=== PATIENT | female | born 1985 | race American Indian/Alaskan Native ===

== ENCOUNTER 2021-06-18 11:10 | Emergency (ER) | payer OTHER ==
--- NOTE | 2021-06-18 11:46 | Emergency Department Report ---
ED N/V/D HPI - General Chief complaint: Nausea/Vomiting/Diarrhea Stated complaint: nausea and vomiting Time Seen by Provider: 06/18/21 11:39 Source: patient Mode of arrival: Ambulatory Limitations: No Limitations - History of Present Illness Initial comments: 36-year-old female presents to the ER today with complaints of nausea and vomiting being . Patient states that she started vomiting the beginning of this week, then 2 days ago she took a home test and it was positive. She states that she took multiple tests and they were all positive. She states that her last menstrual cycle was May 15, 2021. She reports mild intermittent abdominal cramping. She denies any diarrhea, UTI symptoms or any abnormal vaginal bleeding or discharge. She is G7, P1, AB 5. MD complaint: nausea, vomiting, other () -: days(s) (2) - Related Data Previous Rx's Medication Instructions Recorded Last Taken Type Ondansetron [Zofran Odt] 4 mg PO Q8HR #15 tab.rapdis 06/18/21 Unknown Rx Allergies Allergy/AdvReac Type Severity Reaction Status Date / Time No Known Allergies Allergy Verified 06/18/21 11:16 ED Review of Systems ROS: Stated complaint: nausea and vomiting Other details as noted in HPI Comment: All other systems reviewed and negative Constitutional: denies: chills, fever Eyes: denies: eye pain, eye discharge, vision change ENT: denies: ear pain, throat pain, dental pain, hearing loss, epistaxis, congestion Respiratory: denies: cough, shortness of breath, wheezing Gastrointestinal: abdominal pain, nausea, vomiting Genitourinary: denies: urgency, dysuria, frequency, hematuria, discharge, abnormal menses, dyspareunia Musculoskeletal: denies: back pain, joint swelling, arthralgia Skin: denies: rash, lesions, change in color, change in hair/nails, pruritus Neurological: denies: headache, weakness, numbness, paresthesias, confusion, abnormal gait, vertigo Psychiatric: denies: anxiety, depression, auditory hallucinations, visual hallucinations, homicidal thoughts, suicidal thoughts Hematological/Lymphatic: denies: easy bleeding, easy bruising ED Past Medical Hx - Past Medical History Previous Medical History?: No - Surgical History Past Surgical History?: No - Medications Home Medications: Home Medications Medication Instructions Recorded Confirmed Last Taken Type Ondansetron [Zofran Odt] 4 mg PO Q8HR #15 tab.rapdis 06/18/21 Unknown Rx ED Physical Exam - General Limitations: No Limitations General appearance: alert, in no apparent distress - Head Head exam: Present: atraumatic, normocephalic, normal inspection - Eye Eye exam: Present: normal appearance, PERRL, EOMI Pupils: Present: normal accommodation - ENT ENT exam: Present: normal exam, mucous membranes moist - Neck Neck exam: Present: normal inspection, full ROM. Absent: meningismus - Respiratory Respiratory exam: Present: normal lung sounds bilaterally. Absent: respiratory distress, wheezes, rales, rhonchi - Cardiovascular Cardiovascular Exam: Present: regular rate, normal rhythm, normal heart sounds - GI/Abdominal GI/Abdominal exam: Present: soft. Absent: distended, tenderness, guarding, rebound - Neurological Exam Neurological exam: Present: alert, oriented X3, CN II-XII intact, normal gait - Psychiatric Psychiatric exam: Present: normal affect, normal mood - Skin Skin exam: Present: intact ED Course Vital Signs 06/18/21 06/18/21 06/18/21 11:14 12:51 13:04 Temperature 98.3 F 97.9 F Pulse Rate 99 H 70 Respiratory 16 16 16 Rate Blood Pressure 135/75 116/66 [Left] O2 Sat by Pulse 99 100 99 Oximetry ED Medical Decision Making - Lab Data Result diagrams: 06/18/21 12:10 06/18/21 12:10 - Radiology Data Patient: THALIA CONWAY MR#: [id number] : 1985 Acct:[id number] Age/Sex: 36 / F ADM Date: 06/18/21 Loc: ED Attending Dr: Ordering Physician: JAELYN PINEDA Date of Service: 06/18/21 Procedure(s): US OB transvaginal Accession Number(s): [id number] cc: JAELYN PINEDA ULTRASOUND OBSTETRIC REASON FOR EXAM: abdominal cramps/HCg 9858 TECHNIQUE: Transabdominal and transvaginal ultrasound was performed to evaluate a first trimester . COMPARISON: None available. FINDINGS: Uterus measures 10 cm. Endometrial stripe measures 2.2 cm. There is a circumscribed cystic structure in the endometrium which may reflect a gestational sac. No yolk sac or pole is identified. This measures 7 mm, corresponding to a gestational age of 5 weeks and 3 days. 2 cm hypoechoic structure in the left ovary, likely reflects a corpus luteum cyst. 1.4 cm follicle in right ovary. No suspicious cystic or solid mass in either adnexa. No significant free fluid IMPRESSION: Intrauterine of uncertain viability. Possible intrauterine gestational sac without yolk sac or pole identified at this time. Findings may be due to early gestation. Recommend continued follow-up with beta hCG and/or pelvic sonography. Signer Name: Dominique Brumfield MD Signed: 06/18/2021 3:07 PM Workstation Name: [id number] Transcribed By: JS Dictated By: DOMINIQUE BRUMFIELD MD Electronically Authenticated By: DOMINIQUE BRUMFIELD MD Signed Date/Time: 06/18/211506 DD/ 01 TD/TT: - Medical Decision Making 36-year-old female presents to the ER today with complaints of nausea and vomiting being . Patient states that she started vomiting the beginning of this week, then 2 days ago she took a home test and it was positive. She states that she took multiple tests and they were all positive. She states that her last menstrual cycle was May 15, 2021. She reports mild intermittent abdominal cramping. She denies any diarrhea, UTI symptoms or any abnormal vaginal bleeding or discharge. She is G7, P1, AB 5. 1530: Patient reports feeling better after IV fluids and Zofran. She has not vomited during stay. She is not toxic or ill-appearing. She is neurologically intact with a normal gait. She is not in any significant distress. She has a soft nontender abdomen. She has no bleeding all labs reviewed and unremarkable. Quantitative hCG measured at 9858, and OB ultrasound showed - - Intrauterine of uncertain viability. Possible intrauterine gestational sac without yolk sac or pole identified at this time. Findings may be due to early gestation. Recommend continued follow-up with beta hCG and/or pelvic sonography. Discussed all results with patient. She currently does not have an [facility] and therefore she will be given referral information to [facility] so that she can follow-up for continued monitoring of her and to start care. Patient expressed understanding of all instructions and agree with plan. Patient was stable at time of discharge. Critical care attestation.: If time is entered above; I have spent that time in minutes in the direct care of this critically ill patient, excluding procedure time. ED Disposition Clinical Impression: Nausea and vomiting during Disposition: 01 HOME / SELF CARE / HOMELESS Is pt being admited?: No Does the pt Need Aspirin: No Condition: Stable Instructions: Nausea and Vomiting, Adult, [id number], First Trimester of Additional Instructions: Recommend that he take the Zofran as prescribed to help with any nausea and vomiting. Recommend that you sip on fluids frequently throughout the day. You can also do edgar which also can help with nausea. It is important that you follow-up with [facility] for continued monitoring of your , including repeat ultrasound and quant. If you do not have an [facility] 1 will be provided for you on your discharge instructions. Recommend that you call and set up an appointment for next week. Return to the ER if your symptoms worsens or changes in any way Prescriptions: Ondansetron [Zofran Odt] 4 mg PO Q8HR #15 tab.rapdis Referrals: [facility] [Provider Group] - 3-5 Days [facility] [Provider Group] - 3-5 Days Forms: Work/School Release Form(ED) Time of Disposition: 15:21
[2021-06-18] MEDS ORDERED: ONDANSETRON 4 MG/2 ML INJ IV ONE (11:47)
[2021-06-18] MEDS ORDERED: SODIUM CHLORIDE 0.9% 1000 ML 1,000 ML IV ONE (11:47)
[2021-06-18 12:23] LABS: Bilirubin,Urine NEG (Negative); Blood,Urine NEG (Negative); Color,Urine Yellow (Yellow); Mucus,Urine 1+ /HPF; Protein,Urine <15 mg/dL mg/dL (Negative)
[2021-06-18 13:32] LABS: Basophils # (Auto) 0.1 K/mm3 (0.0-0.1); Basophils % (Auto) 0.9 % (0.0-1.8); Eosinophils # (Auto) 0.1 K/mm3 (0.0-0.4); Eosinophils % (Auto) 2.4 % (0.0-4.3); Hematocrit 35.8 % (30.3-42.9); Hemoglobin 11.6 gm/dl (10.1-14.3); Lymphocytes # (Auto) 2.5 K/mm3 (1.2-5.4); Mean Corpuscular HGB Conc 32 % (30-34); Mean Corpuscular Volume 99 fl (79-97); Monocytes # (Auto) 0.6 K/mm3 (0.0-0.8); Platelet Count 193 K/mm3 (140-440); Red Blood Count 3.62 M/mm3 (3.65-5.03); Red Cell Distribution Width 13.6 % (13.2-15.2)
[2021-06-18 13:48] LABS: Alanine Aminotransferase 18 units/L (7-56); Albumin 4.5 g/dL (3.9-5); Blood Urea Nitrogen 13 mg/dL (7-17); Calcium 9.1 mg/dL (8.4-10.2); Hemolysis Index 7
[2021-06-18 14:18] LABS: BUN/Creatinine Ratio 19
--- NOTE | 2021-06-18 15:11 | Ultrasound Report ---
ULTRASOUND OBSTETRIC REASON FOR EXAM: abdominal cramps/HCg 9858 TECHNIQUE: Transabdominal and transvaginal ultrasound was performed to evaluate a first trimester pre gnancy. COMPARISON: None available. FINDINGS: Uterus measures 10 cm. Endometrial stripe measures 2.2 cm. There is a circumscribed cystic structure in the endometrium which may reflect a gestational sac. No yolk sac or pole is identified. This measures 7 mm, corresponding to a gestational age of 5 weeks and 3 days. 2 cm hypoechoic structure in the left ovary, likely reflects a corpus luteum cyst. 1.4 cm follicle in right ovary. No suspicious cystic or solid mass in either adnexa. No significant free fluid IMPRESSION: Intrauterine of uncertain viability. Possible intrauterine gestational sac without yolk sac or pole identified at this time. Findings may be due to early gestation. Recommend continued f ollow-up with beta hCG and/or pelvic sonography. Signer Name: Dominic Brumfield MD Signed: 06/18/2021 3:07 PM Workstation Name: [id number]
[2021-06-18 15:30] VITALS: BP 115/60
== END 2021-06-18 15:27 | disposition home or self-care (01) ==
LOC: ED 11:10
DX: O21.9 Vomiting of pregnancy, unspecified (principal); Z3A.01 Less than 8 weeks gestation of pregnancy; Z79.899 Other long term (current) drug therapy
CPT/HCPCS: 36415; 76817; 80053; 81001; 83690; 84702; 85025; 96361; 96374; 99284; J2405; J7030; Q0162